=== PATIENT | female | born 1990 | race Caucasian/White ===

== ENCOUNTER → 2017-03-10 | Outpatient (CLI) | payer BC ==
[2017-03-10 18:05] LABS: URINE APPEARANCE CLEAR (CLEAR); URINE BILIRUBIN NEG (NEG); URINE COLOR YELLOW; URINE EPITHELIAL CELL AUTO 20-30 /lpf (0-5); URINE NITRITE NEG (NEG); URINE PH 6.5 (4.5-7.5); URINE SPECIFIC GRAVITY 1.012 (1.000-1.030); UROBILINOGEN NEG (NEG)
[2017-03-10 18:07] LABS: MANUAL MICROSCOPIC REQUIRED? NO; REVIEW REQ? NO
--- NOTE | 2017-03-14 12:45 | CODING QUERY NO DIAGNOSIS ---
TREATMENT RENDERED WITHOUT A DIAGNOSIS : 1990 To promote full compliance with coding requirements relating to patient care, physician participation is requested in all cases of machinist mate uncertainty. Please assist us with providing a diagnosis/symptom for the test(s) below: A diagnosis/symptom was not documented on your Order. A valid diagnosis/symptom is required to bill all insurances. Please remember that we are unable to code a diagnosis of rule out, probable, possible, questionable, or suspected. Tests that require a diagnosis: DOS: 03/10/17 * URINE CULTURE CLEAN DIAGNOSIS: * UA CLEAN CATCH DIAGNOSIS: Provider Signature: Date: Thank you Yamila Crespo Health Information Management Once completed, please kindly fax back to [phone] For questions please call [phone]
== END | disposition home or self-care (01) ==
LOC: C.LABSPEC 17:36
PROVIDERS: ATTEND Family Medicine
DX: R39.9 Unspecified symptoms and signs involving the genitourinary system (principal)

== ENCOUNTER → 2017-03-14 | Outpatient (CLI) | payer BC ==
--- NOTE | 2017-03-14 07:36 | DIAGNOSTIC IMAGING REPORT ---
EXAMINATION: RENAL ULTRASOUND CLINICAL HISTORY: Frequent urinary tract infections COMPARISON STUDY: None FINDINGS: The right kidney measures 11.8 cm. The left kidney measures 10.7 cm. There is no evidence of hydronephrosis. There are no renal masses. No bladder abnormalities are visualized. Bilateral ureteral jets were visualized. IMPRESSION : Normal renal ultrasound. Electronically signed by: Endy Bergman M.D. 03/14/2017 7:35 AM Dictated Date/Time: 03/14/2017 7:34 AM
== END | disposition home or self-care (01) ==
LOC: C.ULTR 07:09
PROVIDERS: ATTEND Family Medicine
DX: N39.0 Urinary tract infection, site not specified (principal)

== ENCOUNTER 2021-04-20 13:00 | Inpatient (IN) ==
[2021-04-20] MEDS: LACTATED RINGER'S 1,000 ML IV PRN ×2 (14:05→21:47)
[2021-04-20] MEDS ORDERED: BETAMETH SOD PHOS/ACETATE IA 6 MG/ML ONE (14:15)
[2021-04-20] MEDS: BETAMETH SOD PHOS/ACETATE IA 6 MG/ML IM SCH (14:18)
[2021-04-20 14:26] LABS: Albumin Level 2.5 gm/dl (3.4-5.0); BUN Creatinine Ratio 9.5 (10-20); Calcium 8.4 mg/dl (8.5-10.1); Creatinine Clr Calc Pharmacy 148.5 ml/min; Est GFR (African American) 144.4 ml/min; Est GFR (Non-African American) 124.6 ml/min; Potassium 3.9 mmol/L (3.5-5.1); Uric Acid 4.1 mg/dl (2.6-7.2)
[2021-04-20 14:29] LABS: Albumin Globulin Ratio 0.6 (0.9-2); Bilirubin,Total 0.3 mg/dl (0.2-1); Globulin 4.3 gm/dl (2.5-4.0); Total Protein 6.8 gm/dl (6.4-8.2)
[2021-04-20 16:31] LABS: Creatinine Urine Random 79.5 mg/dl; Protein Creatinine Ratio Urine 0.3 (0-0.2); Total Protein Urine Random 19.6 mg/dl (0-11.9)
--- NOTE | 2021-04-20 16:36 | History & Physical Report ---
Date of Service April 20, 2021 Assessment & Plan (1) Oligohydramnios: Plan: See plan as per MFM above. BMTZ given, repeat dose planned in 24 hours. After that, plan will be to move towards delivery. Though a repeat BPP was initially recommended at 24 hours, M later recommended that this was unnecessary as a 10/10 BPP should still not change the plan to deliver this patient once BMTZ has been given. It may still provide useful information about likely tolerance of an induction process vs whether proceeding to is wiser, however; doing or not doing this test would be at the discretion of tomorrow's ammonia technician physician. (2) IUGR (intrauterine growth restriction) affecting care of mother: Admission and Anticipated Discharge Date Admission Date: April 20, 2021 History of Present Illness Primary Care Provider: Lucina Mcwilliams MD 31YO with [facility]UP @ 35w2d presents from office with new dx of IUGR and oligohydramnios, found on routine visit today. AC 7% and DARSHAN <2 with DVP 1.25cm. BPP overall was 8/10 and there is good FM, no LOF, no VB, no CTX. Case was discussed with [facility] by Dr. Lundberg, and their recommendation was initially to admit for hydration IV and BMTZ, with repeat BPP tomorrow. After further discussion they changed recommendation to admitting now for hydration and BMTZ but to deliver the patient after second dose of BMTZ without need for repeat BPP. This is because a new diagnosis of IUGR + Oligo at greater than 34 weeks would indicate for delivery after administration of BMTZ or sooner if acute distress. The above was relayed to the patient today by me and she had all questions answered. The vast majority of it was already known to her having been explained by Dr. Lundberg. She is anxious and this potentially explains her BP elevations, as her BP was normal at the office visit and thus far labs show no liver or renal abnormalities to suggest preeclampsia. The office protein dip was negative. The patient denies FLEMING, RUQ pain, vision change or edema. CBC and spot pr/cr ratio are still pending, however. Importantly, unless preeclampsia were to be severe, it would not likely impact plans of care - but gHTN or Preeclampsia (if present) could explain the new IUGR/oligo. complicated by A1GDM and a carb-conscious diet is ordered during her admission with AC/HS fingersticks. Allergies Allergy/AdvReac Type Severity Reaction Status Date / Time No Known Allergies Allergy Verified 04/20/21 11:31 Home Medications Medication Instructions Recorded Confirmed Type omega-3 fatty acids 1,000 mg 1,000 mg PO DAILY 10/03/20 04/20/21 History capsule (Fish Oil Concentrate) prenat.vits,adrianna,hea-omop-oubxk PO 10/03/20 04/20/21 History acetone (urine) test (Ketone Urine #50 ea 01/19/21 04/20/21 Rx Test) blood sugar diagnostic (OneTouch #150 ea 01/19/21 04/20/21 Rx Verio test strips) blood-glucose meter (OneTouch #1 ea 01/19/21 04/20/21 Rx Verio Flex meter) lancets 33 gauge (OneTouch Delica #150 ea 01/19/21 04/20/21 Rx Plus Lancet) Patient History Medical History (Updated 04/20/21 @ 16:40 by Mary Martinez MD) Anxiety Depression Varicella vaccination Surgical History (Updated 11/17/18 @ 10:59 by Oh Williamson) History of tonsillectomy History of wisdom tooth extraction Family History (Updated 10/03/20 @ 08:55 by Keyanna Guerrero, BONIFACIO) Mother Cancer squamous cell cancer in vaginal wall Squamous cell carcinoma Father Alcoholism Grandmother (Maternal) Diabetes Grandmother (Paternal) Diabetes Denies family history of Ovarian cancer Prostate cancer Myocardial infarction Breast cancer Colorectal cancer Social History (Updated 10/03/20 @ 08:57 by Keyanna Guerrero RN) Smoking Status: Never smoker Age Quit Using Tobacco: 28; Second Hand Exposure: Yes; Do You Dip or Chew Tobacco: No; Hx Alcohol Use: No Hx Substance Use: No Preferred Language: Divehi Communication Ability: Effective Psychology Assistant Required: No Beliefs That Will Affect Care: None marital status: marital status details: Vikram Amrik (27) [phone] Current Living Situation: Spouse Current Living Situation Comment: Pt lives with and a beagle current occupational status: employed current occupation: [employer] work- [employer] Other Information That Helps Us Care for You: No Feels Safe at Home: Yes Safety Concerns: Feels Safe At This Time Childhood Exposure to Second-Hand Smoke: Yes Dental Care, Regularly: Yes Physical Activity Frequency: 3-4 Times per Week Assistive Devices: None Physical Exam Constitutional: WD/WN, vitals as above Eyes: PERRL, conjunctivae normal, anicteric sclerae ENMT: external ear and nose normal, oropharynx normal Neck: supple Respiratory: normal respiratory effort and able to speak in complete sentences; no respiratory distress Cardiovascular: Rate/Rhythm: regular rate and regular rhythm Gastrointestinal (Abdomen): Gravid / AGA, nontender Musculoskeletal: no cyanosis or clubbing, extremities motor strength 5/5 Skin: no rashes, warm and dry Psychiatric: A+Ox3, euthymic affect Genitourinary: OB Exam Monitor Tracing: + external FHT monitor used, + external uterine monitor used and + category I Results & Data ([facility]) Vital Signs (Past 12 Hours) Vital Signs Temp Pulse Resp BP 04/20/21 16:18 78 162/70 H 04/20/21 15:02 67 170/105 H 04/20/21 14:06 82 152/89 H 04/20/21 14:05 56 L 158/87 H 04/20/21 13:24 64 145/95 H 04/20/21 13:17 98.4 F 64 16 145/95 H 04/20/21 13:10 62 142/90 H 04/20/21 13:09 61 140/91 Code Status & VTE Plan VTE Prophylaxis Plan VTE Prophylaxis will be ordered: Yes Coding Level of Care Code None Diagnoses Oligohydramnios O41.00X0 IUGR (intrauterine growth restriction) affecting care of mother O36.5990
[2021-04-20 17:01] LABS: Hematocrit (blood only) 35.5 % (37-47); Hemoglobin 11.9 g/dL (12.0-16.0); Mean Corpuscular Hemoglobin 30.9 pg (25-34); Mean Corpuscular Hgb Conc 33.5 g/dL (32-36); Mean Corpuscular Volume 92.2 fL (80-100); Mean Platelet Volume 10.5 fL (7.4-10.4); Platelet Count 193 K/uL (130-400); RDW Coefficient of Variation 13.9 % (11.5-14.5); RDW Standard Deviation 46.8 fL (36.4-46.3); Red Blood Count 3.85 M/uL (4.2-5.4); White Blood Count 9.72 K/uL (4.8-10.8)
--- NOTE | 2021-04-20 20:00 | Obstetrical Progress Note ---
Date of Service April 20, 2021 Assessment & Plan (1) Preeclampsia: Plan: Discussed with patient and FOB: her labs show normal renal/hepatic function, normal platelets. Despite neg urine dip in office, her Pr/Cr ratio is exactly 0.3, which would yield diagnosis of preeclampsia if she were hypertensive. And despite the BP in office being completely normal, she has indeed been hypertensive since arriving on L&D, with isolated values in severe range that did not persist on repeat. The patient suspected and I agreed that her hypertension was initially likely to be due to anxiety, considering the fact that the FOB was not able to be here with her right away. He has now joined her in the room, and recent BP are still hypertensive but all are in the mild range. The baby has new diagnosis IUGR by one measurement (AC 7%, EFW 14%). In essence, the patient has met diagnosis of preeclampsia (just barely on proteinuria of 0.3 and hypertension only noted after arriving here today), and "by the book" could be diagnosed as severe preeclampsia based on either the IUGR and an isolated severe pressure (two values but both were taken in the same minute at 15:02pm). Clinically she feels fine. Her exam is normal, no hyperreflexia, and labs are good. The patient notes that she has a sister who experienced preeclampsia and she recalls the sister having a headache, swelling, abdominal pain, looking quite ill - and the patient notes she has had none of these symptoms herself. We discussed that if I diagnose her with severe preeclampsia, the management is to begin magnesium infusion now and to move towards delivery without further delay. We discussed that if I consider her mild preeclampsia, the management is to continue monitoring and give BMTZ #2 tomorrow with plan to move towards delivery shortly thereafter. We discussed pros and cons of both, with the risk of rapidly accelerating preeclampsia if we don't Mag and the risk of prematurity complications if we don't allow time for steroid effect. They prefer to monitor closely for now as the patient was normotensive just hours ago and still has no symptoms whatsoever. RN aware to continue hourly BP, repeat any severe value at 15min interval, and notify me of severe values or patient changes (signs or symptoms) at which point we would initiate severe preeclampsia management. Otherwise we will manage as mild preeclampsia and allow time for BMTZ to be given tomorrow if possible. Admission and Anticipated Discharge Date Admission Date: April 20, 2021 Subjective FOB has arrived and is now in patient room, along with patient and RN Susannah. She continues to deny FLEMING, RUQ pain, vision change, edema, nausea or vomiting. Has good FM, no Ctx, LOF or VB. Feels "great, much more relaxed" Physical Exam Neurologic: DTR 1+ to 2+ at patellae, no LE edema Genitourinary: FHT Cat 1 toco quiet Results & Data ([facility]) Vital Signs (Past 12 Hours) Vital Signs Temp Pulse Resp BP 04/20/21 19:35 67 148/90 H 04/20/21 19:20 98.8 F 68 18 150/94 H 04/20/21 18:22 70 146/89 H 04/20/21 17:19 75 168/87 H 04/20/21 17:16 68 163/89 H 04/20/21 16:18 78 162/70 H 04/20/21 16:00 98.6 F 18 04/20/21 15:02 67 170/105 H 04/20/21 14:06 82 152/89 H 04/20/21 14:05 56 L 158/87 H 04/20/21 13:24 64 145/95 H 04/20/21 13:17 98.4 F 64 16 145/95 H 04/20/21 13:10 62 142/90 H 04/20/21 13:09 61 140/91 PG Care Time/CCT Total # of Minutes Spent Total Time Spent with Patient: Total time spent is greater than 50% in coordination of care (as documented) at patient's floor/unit and/or counseling patient: Coding Level of Care Code None Diagnoses Preeclampsia O14.90
[2021-04-21] MEDS: LACTATED RINGER'S 1,000 ML IV PRN ×2 (05:32→14:24)
--- NOTE | 2021-04-21 08:46 | Labor Progress Brief Note ---
Date of Service April 21, 2021 Subjective Patient feels well this am and is ready to begin induction. She has no s/s of pet--denies marin/vision changes/ruq pain/edema. no labor sx. +fm. Nursing assessment this am notes no physical symptoms of pet. Assessment & Plan (1) Preeclampsia: (2) IUGR (intrauterine growth restriction) affecting care of mother: (3) Oligohydramnios: Plan: Beginning induction per recommendations of MFM at [facility]. Kwon bulb placed. fetus category one. pet without sf. Patient advised that if blood pressure today reach severe range, will be starting mag. Dr. Raygoza is peds today is aware of the situation and GA. Patient and fob aware that this is a , indicated induction. The baby is a boy. They are aware that the baby may require higher level of care and be transferred to nicu which would then involve them being . I think this is a small risk but a very real risk. Discussed that we could transfer them now for induction at the tertiary care facility, they decline. All questions answered to the best of my ability. Will not be repeating a bpp today as results will not change the plan. If the baby does not tolerate labor because of oligo, will proceed with c/s. Admission and Anticipated Discharge Date Admission Date: April 20, 2021 Physical Exam Physical Exam: cx--ft/l/h/firm/mid toco--rare efm--120 with mod varibility, accels to 150s, no decels speculum placed, cx visualized, kwon placed through this easily, filled with 30cc sterile water, taped to leg--tolerated well. Results & Data ([facility]) Vital Signs (Past 12 Hours) Vital Signs Temp Pulse Resp BP 04/21/21 08:36 74 165/94 H 04/21/21 07:45 36.9 C 20 04/21/21 07:36 59 L 142/93 H 04/21/21 06:35 64 146/81 H 04/21/21 05:35 64 137/82 04/21/21 04:35 68 153/85 H 04/21/21 03:35 65 145/81 H 04/21/21 02:40 37.1 C 18 04/21/21 02:37 70 145/74 H 04/21/21 02:35 71 163/93 H 04/21/21 01:35 63 145/72 H 04/21/21 00:39 67 148/87 H 04/21/21 00:36 65 153/89 H 04/20/21 23:35 68 145/90 H 04/20/21 22:37 74 144/83 H 04/20/21 21:37 66 141/82 H Coding Level of Care Code None Diagnoses Preeclampsia O14.90 IUGR (intrauterine growth restriction) affecting care of mother O36.5990 Oligohydramnios O41.00X0
[2021-04-21] MEDS ORDERED: OXYTOCIN 30 UNITS/500 ML BAG IV PRN ×2 (09:17)
[2021-04-21] MEDS ORDERED: PENICILLIN G POTASSIUM 6 MU in DEXTROSE 5% 250 ML IV STA (09:17)
[2021-04-21] MEDS ORDERED: LACTATED RINGER'S 1,000 ML IV PRN (09:17)
[2021-04-21 09:48] LABS: Hematocrit (blood only) 33.8 % (37-47); Hemoglobin 11.4 g/dL (12.0-16.0); Mean Corpuscular Hemoglobin 30.9 pg (25-34); Mean Corpuscular Hgb Conc 33.7 g/dL (32-36); Mean Corpuscular Volume 91.6 fL (80-100); Mean Platelet Volume 10.5 fL (7.4-10.4); Platelet Count 208 K/uL (130-400); RDW Coefficient of Variation 13.8 % (11.5-14.5); RDW Standard Deviation 45.4 fL (36.4-46.3); Red Blood Count 3.69 M/uL (4.2-5.4); White Blood Count 9.88 K/uL (4.8-10.8)
[2021-04-21] MEDS: BETAMETH SOD PHOS/ACETATE IA 6 MG/ML IM SCH (14:15)
[2021-04-21] MEDS: PENICILLIN G POTASSIUM 3 MU in DEXTROSE 5% 100 ML IV PRN ×3 (15:03→23:29)
[2021-04-21] MEDS: CALCIUM CARBONATE 500 MG CHEWABLE TAB PO PRN ×3 (15:15→23:30)
--- NOTE | 2021-04-21 15:52 | Labor Progress Brief Note ---
Date of Service April 21, 2021 Subjective Notes some contractions, rates a 4 Assessment & Plan (1) Preeclampsia: (2) IUGR (intrauterine growth restriction) affecting care of mother: (3) Oligohydramnios: Plan: continue current management. fetus category one. no s/s of severe disease. most bps 150s/80-90. Admission and Anticipated Discharge Date Admission Date: April 21, 2021 Physical Exam Physical Exam: gentle tug on kwon, does not move toco--q2-4min, pit at 13 efm--120s wtih mod variaiblity , accels to 140s, no decels Results & Data ([place]) Vital Signs (Past 12 Hours) Vital Signs Temp Pulse Resp BP 04/21/21 15:35 75 163/94 H 04/21/21 14:51 70 155/97 H 04/21/21 14:35 36.9 C 80 20 151/89 H 04/21/21 13:35 73 153/85 H 04/21/21 12:35 72 159/92 H 04/21/21 11:37 71 163/82 H 04/21/21 11:35 77 168/90 H 04/21/21 10:35 65 150/85 H 04/21/21 09:35 72 139/83 04/21/21 08:43 70 149/84 H 04/21/21 08:41 77 172/101 H 04/21/21 08:36 74 165/94 H 04/21/21 07:45 36.9 C 20 04/21/21 07:36 59 L 142/93 H 04/21/21 06:35 64 146/81 H 04/21/21 05:35 64 137/82 04/21/21 04:35 68 153/85 H Coding Level of Care Code None Diagnoses Preeclampsia O14.90 IUGR (intrauterine growth restriction) affecting care of mother O36.5990 Oligohydramnios O41.00X0
--- NOTE | 2021-04-21 17:25 | Labor Progress Brief Note ---
Date of Service April 21, 2021 Subjective kwon bulb fell out Assessment & Plan (1) Preeclampsia: (2) IUGR (intrauterine growth restriction) affecting care of mother: (3) Oligohydramnios: Plan: continue current management. fetus category one. no s/s of worsening disease. Admission and Anticipated Discharge Date Admission Date: April 21, 2021 Physical Exam Physical Exam: cx--5/50/-2/soft/mid arom--clear fluid toco--q 2-4 min, pit at 13 efm--120s with mod variability, accels to 140s, no decels Results & Data ([facility]) Vital Signs (Past 12 Hours) Vital Signs Temp Pulse Resp BP 04/21/21 16:59 37.0 C 18 04/21/21 16:35 67 146/84 H 04/21/21 15:35 75 163/94 H 04/21/21 15:00 37.0 C 18 04/21/21 14:51 70 155/97 H 04/21/21 14:35 36.9 C 80 20 151/89 H 04/21/21 13:35 73 153/85 H 04/21/21 12:35 72 159/92 H 04/21/21 11:37 71 163/82 H 04/21/21 11:35 77 168/90 H 04/21/21 10:35 65 150/85 H 04/21/21 09:35 72 139/83 04/21/21 08:43 70 149/84 H 04/21/21 08:41 77 172/101 H 04/21/21 08:36 74 165/94 H 04/21/21 07:45 36.9 C 20 04/21/21 07:36 59 L 142/93 H 04/21/21 06:35 64 146/81 H 04/21/21 05:35 64 137/82 Coding Level of Care Code None Diagnoses Preeclampsia O14.90 IUGR (intrauterine growth restriction) affecting care of mother O36.5990 Oligohydramnios O41.00X0
[2021-04-21] MEDS ORDERED: ePHEDrine sulfate 50 MG/ML AMP ONE (20:35)
--- NOTE | 2021-04-21 20:35 | Anesthesiology Consultation ---
Date of Service April 21, 2021 Assessment & Plan (1) Encounter for pre-operative examination: Chart Review Chart Review: Acceptable Risk for Surgery and Patient NOT seen in Pre Admission Testing Consults Requested none History Height/Weight Height: 5 ft 3 in Weight: 85.729 kg Allergies Allergy/AdvReac Type Severity Reaction Status Date / Time No Known Allergies Allergy Verified 04/20/21 11:31 Medications Home Medications Medication Instructions Recorded Confirmed Last Taken omega-3 fatty acids 1,000 mg 1,000 mg PO DAILY 10/03/20 04/20/21 Unknown capsule (Fish Oil Concentrate) prenat.vits,adrianna,zwy-bwrb-ftdfw PO 10/03/20 04/20/21 Unknown acetone (urine) test (Ketone Urine #50 ea 01/19/21 04/20/21 Unknown Test) blood sugar diagnostic (OneTouch #150 ea 01/19/21 04/20/21 Unknown Verio test strips) blood-glucose meter (OneTouch #1 ea 01/19/21 04/20/21 Unknown Verio Flex meter) lancets 33 gauge (OneTouch Delica #150 ea 01/19/21 04/20/21 Unknown Plus Lancet) Active Medications Generic Name Dose Route Start Last Admin Trade Name Freq PRN Reason Stop Dose Admin Betamethasone Acet/Betameth SodPhos 12 mg 04/21/21 13:45 04/21/21 14:15 Betameth Sod Phos/Acetate Ia 6 Mg/Ml IM 04/22/21 13:46 12 mg Q24H DONNA Administration Calcium Carbonate 500 mg 04/21/21 14:47 04/21/21 19:43 Calcium Carbonate 500 Mg Chewable Tab PO 05/21/21 14:46 500 mg Q4 PRN Administration Indigestion Lactated Ringer's 1,000 mls @ 125 mls/hr 04/20/21 13:35 04/21/21 20:09 Lr IV 05/20/21 13:34 125 mls/hr .Q8H PRN Infusion L&D Protocol Protocol Penicillin G Potassium 3 mu/ 106 mls @ 100 mls/hr 04/21/21 12:17 04/21/21 20:09 Dextrose IV 05/01/21 12:16 Infused Q4H PRN Infusion GBS(+) Until Delivery Oxytocin 30 units in 500 mls @ 19 mls/hr 04/21/21 09:17 04/21/21 19:04 Pitocin IV 04/23/21 09:16 1.14 units/hr .Q24H PRN 19 mls/hr Labor Induction/Augmentation Titration Protocol 1.14 UNITS/HR Past Medical History Medical History Anxiety Depression Varicella vaccination Past Family History Family History Mother Cancer squamous cell cancer in vaginal wall Squamous cell carcinoma Father Alcoholism Grandmother (Maternal) Diabetes Grandmother (Paternal) Diabetes Denies family history of Ovarian cancer Prostate cancer Myocardial infarction Breast cancer Colorectal cancer Past Surgical History Surgical History History of tonsillectomy History of wisdom tooth extraction Social History Smoking Status: Never smoker tobacco type: cigarettes Do You Dip or Chew Tobacco: No Hx Alcohol Use: No Hx Substance Use: No substance use type: does not use Physical Exam Vital Signs Last Vital Signs Temp 36.6 C 04/21/21 19:00 Pulse 70 04/21/21 20:16 Resp 18 04/21/21 19:00 BP 178/94 H 04/21/21 20:16 Testing Laboratory Results 04/21/21 09:29 04/20/21 13:55 04/21/21 04/21/21 04/21/21 20:30 18:25 16:49 POC Glucose 122 H 105 H 117 H 04/21/21 04/21/21 15:43 14:20 POC Glucose 104 H 100 H
[2021-04-21] MEDS ORDERED: fentaNYL citrate 100 MCG/2 ML VIAL ONE (20:36)
[2021-04-21] MEDS ORDERED: SODIUM CHLORIDE 0.9% INJ 10 ML VIAL ONE (20:36)
[2021-04-21] MEDS ORDERED: BUPIVACAINE 0.25% 30 ML VIAL ONE (20:36)
[2021-04-21] MEDS ORDERED: fentaNYL 2MCG/ML ROPIVACAINE 1.25MG/ML 100 ML BAG EPI ONE (20:36)
--- NOTE | 2021-04-21 20:42 | Labor Progress Brief Note ---
Date of Service April 21, 2021 Subjective patient getting uncomfortable. feels pressure to push. no s/s of worsening disease. c/o heartburn. Tums did not help. Recently more elevated blood pressures which I suspect related to pain more than worsening disease. Assessment & Plan (1) Preeclampsia: (2) IUGR (intrauterine growth restriction) affecting care of mother: (3) Oligohydramnios: Plan: Pressures more elevated as she has become more uncomfortable. REcommend epidural to improve this and relax pelvis. She is agreeable. If pressures still elevated after epidural, will then need to add mag and consider severe. Fetus overall reassuring. Admission and Anticipated Discharge Date Admission Date: April 21, 2021 Physical Exam Physical Exam: cx--6cm per nursing \toco--q2-4, pit at 19 efm--120s with mod variability, accels to 140s, early with some contractions. Results & Data ([facility]) Vital Signs (Past 12 Hours) Vital Signs Temp Pulse Resp BP 04/21/21 20:16 70 178/94 H 04/21/21 19:45 74 168/88 H 04/21/21 19:16 70 175/92 H 04/21/21 19:00 36.6 C 18 04/21/21 18:45 73 164/93 H 04/21/21 18:20 75 146/86 H 04/21/21 17:42 74 151/90 H 04/21/21 17:41 64 163/90 H 04/21/21 17:35 67 188/90 H 04/21/21 16:59 37.0 C 18 04/21/21 16:35 67 146/84 H 04/21/21 15:35 75 163/94 H 04/21/21 15:00 37.0 C 18 04/21/21 14:51 70 155/97 H 04/21/21 14:35 36.9 C 80 20 151/89 H 04/21/21 13:35 73 153/85 H 04/21/21 12:35 72 159/92 H 04/21/21 11:37 71 163/82 H 04/21/21 11:35 77 168/90 H 04/21/21 10:35 65 150/85 H 04/21/21 09:35 72 139/83 04/21/21 08:43 70 149/84 H 04/21/21 08:41 77 172/101 H Coding Level of Care Code None Diagnoses Preeclampsia O14.90 IUGR (intrauterine growth restriction) affecting care of mother O36.5990 Oligohydramnios O41.00X0
[2021-04-21] MEDS ORDERED: FAMOTIDINE 20 MG TAB PO ONE (21:00)
[2021-04-21] MEDS ORDERED: fentaNYL 2MCG/ML ROPIVACAINE 1.25MG/ML 100 ML BAG EPI PRN (21:26)
[2021-04-21] MEDS ORDERED: NALOXONE HCL 0.4 MG/1 ML VIAL/CARP IV PRN (21:26)
[2021-04-21] MEDS ORDERED: NALBUPHINE HCL INJ 10 MG/ML AMP IV PRN (21:26)
[2021-04-21] MEDS ORDERED: ePHEDrine sulfate 50 MG/ML AMP IV PRN (21:26)
[2021-04-21] MEDS ORDERED: diphenhydrAMINE 50 MG/ML VIAL IV PRN (21:26)
[2021-04-21] MEDS ORDERED: NALOXONE HCL 1 MG in SODIUM CHLORIDE 0.9% 1000ML 1,000 ML IV PRN (21:26)
[2021-04-21] MEDS ORDERED: ONDANSETRON INJ 2 MG/ML 2 ML VIAL IV PRN (21:26)
[2021-04-21] MEDS ORDERED: DEXTROSE 5% 1,000 ML IV PRN (21:36)
[2021-04-21] MEDS ORDERED: INSULIN REGULAR 250 UNITS in SODIUM CHLORIDE 0.9% 247.5 ML IV PRN (21:36)
[2021-04-21] MEDS ORDERED: SODIUM CHLORIDE 0.9% 1000ML 1,000 ML IV PRN (21:36)
[2021-04-21] MEDS ORDERED: DEXTROSE 50% 50 ML SYRINGE IV PRN (21:36)
--- NOTE | 2021-04-21 22:49 | Labor Progress Brief Note ---
Date of Service April 21, 2021 Subjective comfortable Assessment & Plan (1) Preeclampsia: (2) IUGR (intrauterine growth restriction) affecting care of mother: (3) Oligohydramnios: Plan: pressures are better with epidural. Will continue to monitor. no cervical change so iupc placed with goal of >200mvu. Fetus overall reassuring. bs were trending into the 120s so started insulin/diabetic protocol. Admission and Anticipated Discharge Date Admission Date: April 21, 2021 Physical Exam Physical Exam: cx--5/75/-2 toco--q2-5min, pit at 19 iupc placed fse placed efm--120s with mod variability, early with some contractions, Results & Data ([facility]) Vital Signs (Past 12 Hours) Vital Signs Temp Pulse Resp BP Pulse Ox 04/21/21 22:46 89 97 04/21/21 22:41 98 H 99 04/21/21 22:36 75 138/80 96 04/21/21 22:31 79 96 04/21/21 22:28 78 93 04/21/21 22:26 99 H 97 04/21/21 22:21 76 96 04/21/21 22:17 89 142/84 H 04/21/21 22:16 77 95 04/21/21 22:11 91 H 97 04/21/21 22:06 89 96 04/21/21 22:01 76 96 04/21/21 21:56 73 96 04/21/21 21:51 92 H 97 04/21/21 21:46 88 95 04/21/21 21:41 72 95 04/21/21 21:40 75 94 04/21/21 21:36 85 96 04/21/21 21:34 78 148/80 H 04/21/21 21:32 68 136/72 04/21/21 21:31 90 97 04/21/21 21:28 96 H 130/77 04/21/21 21:26 83 96 04/21/21 21:25 90 150/86 H 04/21/21 21:22 88 140/79 04/21/21 21:21 88 96 04/21/21 21:20 36.9 C 18 04/21/21 21:19 83 131/72 04/21/21 21:16 76 129/73 96 04/21/21 21:13 90 138/79 04/21/21 21:12 18 04/21/21 21:11 88 135/79 97 04/21/21 21:07 77 137/78 04/21/21 21:06 80 97 04/21/21 21:04 79 136/71 04/21/21 21:02 75 151/72 H 04/21/21 21:01 73 99 04/21/21 20:58 77 157/83 H 04/21/21 20:56 78 100 04/21/21 20:55 89 157/83 H 04/21/21 20:51 77 98 04/21/21 20:50 95 H 88 L 04/21/21 20:45 80 162/87 H 04/21/21 20:16 70 178/94 H 04/21/21 19:45 74 168/88 H 04/21/21 19:16 70 175/92 H 04/21/21 19:00 36.6 C 18 04/21/21 18:45 73 164/93 H 04/21/21 18:20 75 146/86 H 04/21/21 17:42 74 151/90 H 04/21/21 17:41 64 163/90 H 04/21/21 17:35 67 188/90 H 04/21/21 16:59 37.0 C 18 04/21/21 16:35 67 146/84 H 04/21/21 15:35 75 163/94 H 04/21/21 15:00 37.0 C 18 04/21/21 14:51 70 155/97 H 04/21/21 14:35 36.9 C 80 20 151/89 H 04/21/21 13:35 73 153/85 H 04/21/21 12:35 72 159/92 H 04/21/21 11:37 71 163/82 H 04/21/21 11:35 77 168/90 H Coding Level of Care Code None Diagnoses Preeclampsia O14.90 IUGR (intrauterine growth restriction) affecting care of mother O36.5990 Oligohydramnios O41.00X0
[2021-04-22] MEDS: LACTATED RINGER'S 1,000 ML IV PRN (01:00)
[2021-04-22] MEDS ORDERED: NURSING L&D Epidural Breakthrough Pain Update ONE (01:11)
[2021-04-22] MEDS ORDERED: BUPIVACAINE 0.25% 30 ML VIAL ONE (01:28)
[2021-04-22] MEDS ORDERED: fentaNYL citrate 100 MCG/2 ML VIAL ONE (01:29)
[2021-04-22] MEDS ORDERED: DIPHTHERIA/TETANUS/PERTUSSIS 0.5 ML SYR/VIAL IM ONE (03:39)
[2021-04-22] MEDS ORDERED: bisacodyL 10 MG SUPP PR PRN (03:39)
[2021-04-22] MEDS ORDERED: ACETAMINOPHEN 325 MG TAB PO PRN (03:39)
[2021-04-22] MEDS ORDERED: SUPERCREAM 0.870% 15 GM JAR EXT PRN (03:39)
[2021-04-22] MEDS ORDERED: HYDROCORTISONE ACETATE 25 MG SUPP PR PRN (03:39)
[2021-04-22] MEDS ORDERED: BENZOCAINE 20% AER SPR 82.5 GM CAN EXT PRN (03:39)
[2021-04-22] MEDS ORDERED: OXYTOCIN 30 UNITS/500 ML BAG IV PRN (03:39)
[2021-04-22] MEDS ORDERED: IBUPROFEN 600 MG TAB PO PRN (03:39)
--- NOTE | 2021-04-22 06:31 | Anesthesia Procedure Note ---
Date of Service April 22, 2021 Anesthesia Post Epidural Note Vital Signs Vital Signs: Temp Pulse Resp BP Pulse Ox 36.7 C 85 16 160/93 H 97 04/22/21 05:30 04/22/21 05:30 04/22/21 05:30 04/22/21 05:30 04/22/21 02:06 Pain Intensity Bilateral Lower Abdomen: Pain Intensity: 0 Notes Mental Status: alert / awake / arousable and participated in evaluation Nausea / Vomiting: adequately controlled Pain: adequately controlled Airway Patency, RR, SpO2: stable & adequate BP & HR: stable & adequate Hydration State: stable & adequate Neuraxial Anesthesia: was administered and sensory block is resolving Anesthetic Complications: no major complications apparent and Pt Satisfied with anesthetic care Epidural: Removed without complications and With tip intact Notes: Epidural site clean, dry and intact. No signs of edema, erythema or bruising at insertion site. Pt instructed to request anesthesia if she has residual lower extremity numbness or if she develops lower extremity pain or weakness, back pain or headache.
--- NOTE | 2021-04-22 07:28 | Delivery Summary ---
Vaginal Delivery Summary Date of Service April 22, 2021 Vaginal Delivery Summary and 1st Degree LAC Pre-operative Diagnosis: at 35 4/7 iugr oligohydramnios GDM preeclampsia without severe features Post-operative Diagnosis: same Procedure: prolonged monitoring steroids for lung maturity kwon for cervical ripening pitocin induction arom epidural iupc/fse first degree laceration and repair EBL: 300cc Anesthesia: epidural Procedure: The patient was diagnosed with iugr and oligo at routine visit to evaluate for GDM. Consult with MFM at [facility] who recommeded prolonged monitoring, steriods and induction. She got betamethasone x 2 and then received kwon bulb and pit. When the bulb fell out, she had arom then epidural. During the course of monitoring and before induction of labor, the patient develped her first elevated blood pressures and obtained the diagnosis of preeclampsia without severe features. Her pressures remained elevated but not consistently in the severe range. The patient required iupc and fse for monitoring and progressed to c/c/+2. The patient pushed for one contraction to deliver a viable male in golden position. The rest of the baby was then delivered without difficulty. The baby was a little floppy and was taken to the warmer for drying and attention. Cord was clamped and cut. Cord blood and segment obtained. Placenta delivered spontaneous, intact with a three vessel cord. Cervix/sulci/rectum/perineum were intact. A first degree vaginal laceration was repaired in the normal standard fashion. Hemostasis obtained with dilute pitocin and fundal massage. Apgars were pending. Mother and baby doing well at the end of the delivery. [facility] Vaginal Delivery Charge Delivery Type Details: and 1st Degree LAC
[2021-04-22] MEDS: PRENATAL VITAMIN 1 TAB PO SCH (08:50)
[2021-04-22] MEDS: DOCUSATE SODIUM 100 MG CAP PO SCH ×2 (08:50→20:04)
[2021-04-23 05:59] LABS: Hematocrit (blood only) 30.5 % (37-47); Hemoglobin 10.1 g/dL (12.0-16.0); Mean Corpuscular Hgb Conc 33.1 g/dL (32-36); Mean Corpuscular Volume 93.6 fL (80-100); Mean Platelet Volume 10.2 fL (7.4-10.4); Nucleated RBC # (auto) 0.02 K/uL (0-0); Nucleated RBC % (auto) 0.2 %; Platelet Count 194 K/uL (130-400); RDW Standard Deviation 48.1 fL (36.4-46.3); Red Blood Count 3.26 M/uL (4.2-5.4); White Blood Count 12.77 K/uL (4.8-10.8)
--- NOTE | 2021-04-23 07:25 | Obstetrical Progress Note ---
Date of Service April 23, 2021 Assessment & Plan (1) state: (2) Preeclampsia: (3) IUGR (intrauterine growth restriction) affecting care of mother: (4) Oligohydramnios: 31 yo PP1 from after IOL for PET w/o SF, newly dx FGR and oligo, doing well -Meeting all pp milestones. Yesterday evening had few BPs that were elevated after she had just been ambulating, otherwise yesterday during the day was normal BP and mild range this AM. I think ok to monitor for now -A+/rubella immune/ -f/u 6 weeks for appt after discharge Subjective Ambulation: ambulating normally Voiding: no voiding problems Passing Gas:: Yes Diet Tolerance:: regular diet Lochia:: Small Feeding Type:: breast feeding Pain well managed with medication Review of Systems Denies fevers, chills, n/v, FLEMING, CP, SOB Physical Exam Constitutional WD/WN, vitals as above no acute distress Respiratory normal respiratory effort; no respiratory distress and no labored breathing Gastrointestinal (Abdomen) Percussion/Palpation: abdomen soft; abdomen nontender fundus firm at umbilicus and NT Musculoskeletal BLE symmetric, nonerythematous, nontender Results & Data ([facility]) Vital Signs (Past 12 Hours) Vital Signs Temp Pulse Resp BP BP Pulse Ox 04/23/21 03:54 98.4 F 93 H 18 144/91 H 98 04/22/21 23:40 98.2 F 68 18 153/96 H 98 04/22/21 19:57 97.7 F 70 18 152/92 H 98
[2021-04-23] MEDS: PRENATAL VITAMIN 1 TAB PO SCH (08:34)
[2021-04-23] MEDS: DOCUSATE SODIUM 100 MG CAP PO SCH ×2 (08:34→21:19)
[2021-04-23] MEDS ORDERED: bisacodyL 5 MG TABEC PO SCH (20:00)
--- NOTE | 2021-04-24 07:29 | Obstetrical Progress Note ---
Date of Service <Carina Salinas MD - Last Filed: 04/24/21 08:07> April 24, 2021 Assessment & Plan <Carina Salinas MD - Last Filed: 04/24/21 08:07> (1) Vaginal delivery: 31 yo , complicated by IUGR, GDMA1, PEC now PPD2 from at 35wk4d -D/c to home today -Vitals reviewed- HDS, afebrile -Blood type A+, GBS unknown (penicillin given intrapartum), Rubella immune -Pain control with ibuprofen, acetaminophen PRN -Encourage -Hgb 10.1, asymptomatic -F/u in 6 weeks with OB (2) Preeclampsia: -BPs normalizing , mostly 130s/80s -BP elevations mostly occurring with ambulation -Continue monitoring, expected self-resolution -1 week BP check with OB f/u <Praveen Elias MD - Last Filed: 04/27/21 08:55> (1) Vaginal delivery: (2) Preeclampsia: Subjective <Carina Salinas MD - Last Filed: 04/24/21 08:07> Ambulation: ambulating normally Voiding: no voiding problems Passing Gas:: Yes Diet Tolerance:: regular diet Lochia:: Small Feeding Type:: breast feeding (Feeding with syringe) Current Pain Level(1-10): 0 Pt feels well overall, had minor soreness this morning after passing bowel movement which resolved with Motrin. Review of Systems Denies fevers/chills. Denies dyspnea, cough. Denies chest pain. Denies breast pain or discharge. Denies dysuria. Denies headache. Denies back pain. Physical Exam <Carina Salinas MD - Last Filed: 04/24/21 08:07> General: Alert, oriented, no acute distress Cardiac: Regular rate and rhythm, normal S1, S2. No murmurs appreciated. Respiratory: Clear to auscultation b/l with good air flow entry, symmetric chest rise and fall. No wheezes or crackles. No increased work of breathing or accessory muscle use Abdomen: Soft, nontender, nondistended. Fundus firm and palpable at 2 cm below umbilicus. No guarding or rebound. Skin: No rashes or lesions Extremities: Warm, dry, well-perfused with capillary refill <2s b/l. No lower extremity edema, erythema or swelling. Negative Steve's sign b/l. Results & Data ([facility]) <Carina Salinas MD - Last Filed: 04/24/21 08:07> Vital Signs (Past 12 Hours) Vital Signs Temp Pulse Resp BP 04/24/21 00:30 36.8 C 80 18 152/88 H 04/23/21 20:30 37.3 C 89 18 157/86 H <Praveen Elias MD - Last Filed: 04/27/21 08:55> Co-Signing Physician Notes Patient seen and evaluated and agree with findings and plan. Stable for discharge Resident Activity Tracking <Carina Salinas MD - Last Filed: 04/24/21 08:07> Resident Involvement: Resident Care Provided Care Provided: OB Delivery
[2021-04-24 08:29] LABS: Hematocrit (blood only) 29.9 % (37-47); Hemoglobin 9.8 g/dL (12.0-16.0)
[2021-04-24] MEDS: PRENATAL VITAMIN 1 TAB PO SCH (08:36)
[2021-04-24] MEDS: DOCUSATE SODIUM 100 MG CAP PO SCH (08:36)
== END 2021-04-24 12:48 | disposition home or self-care (01) | DRG 806 ==
LOC: 4S1 13:00 → OPB 13:00 → 4S1 13:01 → 4S2 04-22 05:35